=== PATIENT | female | born 1990 | race Caucasian/White ===

== ENCOUNTER 2017-09-23 15:13 | Emergency (ER) | payer OTHER ==
[~2017-09-23] VITALS: Ht 158.8 cm; Wt 56.3 kg
[2017-09-23] MEDS ORDERED: NS 500 ML IV ONE (16:00)
[2017-09-23 16:53] LABS: BASO % 0.2 % (0.0-1.0); EOS # 0.1 10^3/uL (0.0-0.50); EOS % 0.9 % (0.0-3.0); IMMATURE GRANULOCYTE % 0.5 % (0-0); LYMPH # 1.5 10^3/uL (1.5-6.5); LYMPH % 14.8 % (24.0-44.0); MEAN CORPUSCULAR HEMOGLOBIN 29.2 pg (27.0-33.0); MEAN CORPUSCULAR HGB CONC 33.7 g/dl (32.0-36.5); MEAN CORPUSCULAR VOLUME 86.6 fl (80.0-96.0); MONO # 0.6 10^3/uL (0.0-0.8); MONO % 6.4 % (0.0-5.0); NEUTROPHILS # 7.8 10^3/uL (1.8-7.7); NEUTROPHILS % 77.2 % (36.0-66.0); PLATELET COUNT, AUTOMATED 206 10^3/uL (150-450)
[2017-09-23 17:27] LABS: ANION GAP 7 MEQ/L (8-16); BLOOD UREA NITROGEN 5 MG/DL (7-18); CALCIUM LEVEL 8.6 MG/DL (8.5-10.1); CARBON DIOXIDE LEVEL 27 MEQ/L (21-32); CHLORIDE LEVEL 104 MEQ/L (98-107); CREATININE FOR GFR 0.43 MG/DL (0.55-1.02); FREE T4 0.84 NG/DL (0.76-1.46); GLOMERULAR FILTRATION RATE > 60.0 (>60); GLUCOSE, FASTING 80 MG/DL (70-105); POTASSIUM SERUM 3.7 MEQ/L (3.5-5.1); SODIUM LEVEL 138 MEQ/L (136-145)
[2017-09-23 17:45] VITALS: BP 112/61
--- NOTE | 2017-09-23 21:16 | ECGEPIP ---
Stationary ECG Study [facility] - ED Test Date: 2017-09-23 Pat Name: ALICE MELO Department: Room: - Gender: F [employer]: pepper : 1990 Requested By: COBY Loyd Order Number: [id number] Reading MD: Randa Lynn Measurements Intervals [place] Rate: 70 P: 38 VT: 114 QRS: 53 QRSD: 85 T: 40 QT: 379 QTc: 409 Interpretive Statements SINUS RHYTHM WITH SHORT VT INTERVAL NO PRIOR FOR COMPARISON Electronically Signed On 09-23-2017 21:16:21 EDT by Randa Lynn
== END 2017-09-23 18:05 | disposition home or self-care (01) ==
LOC: M ED 15:13
DX: O99.89 Other specified diseases and conditions complicating pregnancy, childbirth and the puerperium (principal); R42 Dizziness and giddiness; Z3A.22 22 weeks gestation of pregnancy

== ENCOUNTER 2017-12-27 16:03 | Inpatient (IN) | payer OTHER ==
[2017-12-27 17:55] LABS: BASO % 0.2 % (0.0-1.0); EOS % 0.4 % (0.0-3.0); HEMATOCRIT 27.8 % (36.0-47.0); HEMOGLOBIN 8.4 g/dl (12.0-16.0); IMMATURE GRANULOCYTE # 0.1 10^3/uL (0-0); IMMATURE GRANULOCYTE % 0.6 % (0-0); LYMPH # 1.6 10^3/uL (1.5-6.5); LYMPH % 17.3 % (24.0-44.0); MEAN CORPUSCULAR HEMOGLOBIN 22.8 pg (27.0-33.0); MEAN CORPUSCULAR HGB CONC 30.2 g/dl (32.0-36.5); MEAN CORPUSCULAR VOLUME 75.5 fl (80.0-96.0); MONO # 0.7 10^3/uL (0.0-0.8); MONO % 7.7 % (0.0-5.0); NEUTROPHILS # 6.9 10^3/uL (1.8-7.7); NEUTROPHILS % 73.8 % (36.0-66.0); PLATELET COUNT, AUTOMATED 119 10^3/uL (150-450); RED BLOOD COUNT 3.68 10^6/uL (4.00-5.40); WHITE BLOOD COUNT 9.3 10^3/uL (4.0-10.0)
[2017-12-27 18:07] LABS: ALT/SGPT 17 U/L (12-78); AST/SGOT 17 U/L (7-37); BILIRUBIN,TOTAL 0.3 MG/DL (0.2-1.0); GLOMERULAR FILTRATION RATE > 60.0 (>60); LDH LACTATE DEHYDROGENASE 175 U/L (84-246); URIC ACID 6.2 MG/DL (2.6-6.0)
[2017-12-27 18:18] LABS: AMPHETAMINES URINE REFLEX NEGATIVE (NEGATIVE); BARBITURATES URINE REFLEX NEGATIVE (NEGATIVE); BENZODIAZEPINES URINE REFLEX NEGATIVE (NEGATIVE); CANNABINOIDS URINE REFLEX NEGATIVE (NEGATIVE); COCAINE METABOLITE URINE REFLE NEGATIVE (NEGATIVE); METHADONE URINE REFLEX NEGATIVE (NEGATIVE); OPIATES URINE REFLEX NEGATIVE (NEGATIVE); PHENCYCLIDINE URINE REFLEX NEGATIVE (NEGATIVE); TOTAL PROTEIN,RANDOM URINE 98.7 MG/DL (0.0-12.0)
[2017-12-27] MEDS ORDERED: CALCIUM GLUCONATE 1,000 MG in D5W MINI-BAG PLUS 100 ML IV (18:45)
[2017-12-27] MEDS: MAG Sulf (L&D) 4 GM/100 ML 4 GM in APPROPRIATE DILUENT 1 EA IV (20:09)
[2017-12-27] MEDS: LR 1,000 ML IV (20:10)
[2017-12-27] MEDS: miSOPROStol 50 MCG 1/2 TAB (S0191) PO (20:10)
[2017-12-27] MEDS: BETAMETHASONE SOLUSPAN 6MG/ML INJ 5ML (J0702) IM (20:11)
[2017-12-27] MEDS: MAG Sulf (OBGYN) 20GM/500ML 20,000 MG in APPROPRIATE DILUENT 1 EA IV (20:33)
[2017-12-28] MEDS: miSOPROStol 50 MCG 1/2 TAB (S0191) PO ×3 (00:12→07:00)
[2017-12-28] MEDS ORDERED: diphenhydrAMINE INJ 50MG/ML VIAL (J1200) As Ordered (00:54)
[2017-12-28] MEDS: diphenhydrAMINE INJ 50MG/ML VIAL (J1200) IV (00:57)
[2017-12-28 05:02] LABS: HEMATOCRIT 30.7 % (36.0-47.0); HEMOGLOBIN 9.3 g/dl (12.0-16.0); MEAN CORPUSCULAR HEMOGLOBIN 22.7 pg (27.0-33.0); MEAN CORPUSCULAR HGB CONC 30.3 g/dl (32.0-36.5); MEAN CORPUSCULAR VOLUME 75.1 fl (80.0-96.0); PLATELET COUNT, AUTOMATED 139 10^3/uL (150-450); RED BLOOD COUNT 4.09 10^6/uL (4.00-5.40); RED CELL DISTRIBUTION WIDTH 14.9 % (11.5-14.5); WHITE BLOOD COUNT 11.2 10^3/uL (4.0-10.0)
[2017-12-28] MEDS: MAG Sulf (OBGYN) 20GM/500ML 20,000 MG in APPROPRIATE DILUENT 1 EA IV ×2 (05:48→15:00)
[2017-12-28] MEDS ORDERED: FENTANYL 2MCG/ML ROPIVACAINE 0.2% IN 0.9% NACL 200ML IVBAG As Ordered (07:23)
[2017-12-28] MEDS: PENICILLIN G POTASSIUM IV 5 MU in D5W MINI-BAG PLUS 100 ML IV (07:33)
[2017-12-28] MEDS ORDERED: ONDANSETRON 4MG/2ML VIAL (J2405) IV (08:45)
[2017-12-28] MEDS ORDERED: EPIDURAL COMMENT XX (08:45)
[2017-12-28] MEDS: FENTANYL/ROPIVACAINE/NACL BAG 200 ML EPIDURAL (08:45)
[2017-12-28] MEDS ORDERED: NALOXONE INJ 0.4 MG/1 ML VIAL (J2310) IV (08:45)
[2017-12-28] MEDS ORDERED: diphenhydrAMINE INJ 50MG/ML VIAL (J1200) IV (08:45)
[2017-12-28] MEDS ORDERED: ePHEDrine INJ 50 MG/ML VIAL IV (08:45)
[2017-12-28] MEDS ORDERED: EPIDURAL/PCA KEYS XX (08:45)
[2017-12-28] MEDS ORDERED: REFRIGERATOR IV KEYS XX (08:45)
[2017-12-28] MEDS ORDERED: LR 1,000 ML IV (08:57)
[2017-12-28] MEDS ORDERED: OXYTOCIN DRIP 30 UNITS in APPROPRIATE DILUENT 1 EA IV (09:00)
[2017-12-28] MEDS: LR 1,000 ML IV ×2 (09:18→17:04)
[2017-12-28] MEDS: PENICILLIN G POTASSIUM IV 2.5 MU in APPROPRIATE DILUENT 1 EA IV (11:41)
[2017-12-28] MEDS ORDERED: ANUSOL HC CREAM 30GM TOP (13:30)
[2017-12-28] MEDS ORDERED: DIBUCAINE 1% OINTMENT 30GM TOP (13:30)
[2017-12-28] MEDS ORDERED: METHYLERGONOVINE MALEATE 0.2 MG TAB PO (13:30)
[2017-12-28] MEDS ORDERED: DOCUSATE SODIUM 100 MG CAP PO (13:30)
[2017-12-28] MEDS: BETAMETHASONE SOLUSPAN 6MG/ML INJ 5ML (J0702) IM (13:40)
[2017-12-28] MEDS: ACETAMINOPHEN 500 MG TAB PO ×2 (13:47→21:57)
[2017-12-28 14:25] LABS: HEMATOCRIT 27.5 % (36.0-47.0); HEMOGLOBIN 8.2 g/dl (12.0-16.0); MEAN CORPUSCULAR HEMOGLOBIN 22.7 pg (27.0-33.0); MEAN CORPUSCULAR HGB CONC 29.8 g/dl (32.0-36.5); PLATELET COUNT, AUTOMATED 148 10^3/uL (150-450); RED BLOOD COUNT 3.62 10^6/uL (4.00-5.40); RED CELL DISTRIBUTION WIDTH 15.2 % (11.5-14.5); WHITE BLOOD COUNT 14.5 10^3/uL (4.0-10.0)
[2017-12-28 15:06] LABS: ALBUMIN 2.4 GM/DL (3.2-5.2); ALBUMIN/GLOBULIN RATIO 0.71 (1.00-1.93); ALKALINE PHOSPHATASE 151 U/L (45-117); ALT/SGPT 15 U/L (12-78); ANION GAP 13 MEQ/L (8-16); AST/SGOT 15 U/L (7-37); BILIRUBIN,TOTAL 0.3 MG/DL (0.2-1.0); BLOOD UREA NITROGEN 7 MG/DL (7-18); CALCIUM LEVEL 6.3 MG/DL (8.5-10.1); CARBON DIOXIDE LEVEL 22 MEQ/L (21-32); CHLORIDE LEVEL 99 MEQ/L (98-107); GLOMERULAR FILTRATION RATE > 60.0 (>60); GLUCOSE, FASTING 116 MG/DL (70-100); POTASSIUM SERUM 3.9 MEQ/L (3.5-5.1); SODIUM LEVEL 134 MEQ/L (136-145); TOTAL PROTEIN 5.8 GM/DL (6.4-8.2)
[2017-12-28 15:21] LABS: MAGNESIUM LEVEL 6.3 MG/DL (1.8-2.4)
[2017-12-28] MEDS: ONDANSETRON 4 MG ORAL DISINTEGRATING TAB (S0181) PO (16:24)
[2017-12-28] MEDS: RHOGAM 300 MCG (1500 IU) INJ (J2790) IM (21:11)
[2017-12-28] MEDS: MEASLES,MUMPS,RUBELLA VACCINE INJ (MMR-II) (90707) SC (21:11)
[2017-12-29] MEDS: LR 1,000 ML IV
[2017-12-29] MEDS: IBUPROFEN 800 MG TAB PO ×2 (04:31→22:55)
[2017-12-29 06:35] LABS: HEMATOCRIT 21.4 % (36.0-47.0); MEAN CORPUSCULAR HEMOGLOBIN 22.6 pg (27.0-33.0); MEAN CORPUSCULAR HGB CONC 29.9 g/dl (32.0-36.5); MEAN CORPUSCULAR VOLUME 75.6 fl (80.0-96.0); PLATELET COUNT, AUTOMATED 145 10^3/uL (150-450); RED BLOOD COUNT 2.83 10^6/uL (4.00-5.40); RED CELL DISTRIBUTION WIDTH 15.3 % (11.5-14.5); WHITE BLOOD COUNT 11.4 10^3/uL (4.0-10.0)
[2017-12-29 06:38] LABS: HEMOGLOBIN 6.4 g/dl (12.0-16.0)
[2017-12-29 07:24] LABS: HEMATOCRIT 22.9 % (36.0-47.0); MEAN CORPUSCULAR HEMOGLOBIN 22.9 pg (27.0-33.0); MEAN CORPUSCULAR HGB CONC 30.6 g/dl (32.0-36.5); MEAN CORPUSCULAR VOLUME 74.8 fl (80.0-96.0); PLATELET COUNT, AUTOMATED 159 10^3/uL (150-450); RED BLOOD COUNT 3.06 10^6/uL (4.00-5.40); RED CELL DISTRIBUTION WIDTH 15.4 % (11.5-14.5); WHITE BLOOD COUNT 13.4 10^3/uL (4.0-10.0)
[2017-12-29] MEDS: PRENATAL VITAMINS CHEWABLE TABLET PO (08:40)
[2017-12-29 08:58] LABS: MAGNESIUM LEVEL 8.2 MG/DL (1.8-2.4)
[2017-12-29] MEDS: MAG Sulf (OBGYN) 20GM/500ML 20,000 MG in APPROPRIATE DILUENT 1 EA IV ×2 (10:12)
[2017-12-29] MEDS: ACETAMINOPHEN 500 MG TAB PO (12:11)
[2017-12-29 12:26] LABS: MAGNESIUM LEVEL 8.5 MG/DL (1.8-2.4)
[2017-12-30] MEDS: ACETAMINOPHEN 500 MG TAB PO ×2 (06:16→23:49)
[2017-12-30] MEDS: PRENATAL VITAMINS CHEWABLE TABLET PO (09:19)
[2017-12-30] MEDS: IBUPROFEN 800 MG TAB PO (17:01)
[2017-12-31] MEDS: PRENATAL VITAMINS CHEWABLE TABLET PO (07:39)
[2017-12-31] MEDS: IBUPROFEN 800 MG TAB PO (07:39)
== END 2017-12-31 13:30 | disposition home or self-care (01) | DRG 775 ==
LOC: M LDO 16:03 → M LDI 18:45 → M OBS 12-30 12:54
PROC: 3E0P7GC Introduction of Other Therapeutic Substance into Female Reproductive, Via Natural or Artificial Opening (ICD-10-PCS; 2017-12-27)
PROC: 10E0XZZ Delivery of Products of Conception, External Approach (ICD-10-PCS; principal; 2017-12-28)
PROC: 0HQ9XZZ Repair Perineum Skin, External Approach (ICD-10-PCS; 2017-12-28)
DX: O14.14 Severe pre-eclampsia complicating childbirth (principal); Z3A.36 36 weeks gestation of pregnancy; O69.81X0 Labor and delivery complicated by cord around neck, without compression, not applicable or unspecified; O70.0 First degree perineal laceration during delivery; Z37.0 Single live birth

== ENCOUNTER 2019-10-27 23:35 | Emergency (ER) | payer OTHER ==
[~2019-10-27] VITALS: Ht 157.5 cm; Wt 49.1 kg
[~2019-10-27 23:35] MED LIST: COLA100C5 PO; IBUP-1114 PO; MAPA500T2 PO; NUPE1OIN2 TOP; PRENTAB9 PO
[2019-10-27] MEDS ORDERED: ZOLO50TA PO (23:50)
[2019-10-27] MEDS ORDERED: HYDR-4570 PO (23:51)
[2019-10-28 01:19] VITALS: BP 132/96
[2019-10-28] MEDS ORDERED: PROAAER10 INH (01:46)
[2019-10-28] MEDS ORDERED: ERYT1OIN26 OP (01:46)
== END 2019-10-28 02:00 | disposition home or self-care (01) ==
LOC: M ED 23:35
DX: H10.9 Unspecified conjunctivitis (principal); R06.02 Shortness of breath; R05 Cough; Z20.828 Contact with and (suspected) exposure to other viral communicable diseases; I10 Essential (primary) hypertension; F41.9 Anxiety disorder, unspecified; Z79.899 Other long term (current) drug therapy; F17.210 Nicotine dependence, cigarettes, uncomplicated

== ENCOUNTER → 2019-11-23 | Outpatient (REF) | payer OTHER ==
[~2019-11-23] MED LIST changes: +ERYT1OIN26 OP; +HYDR-4570 PO; +PROAAER10 INH; +ZOLO50TA PO
[2019-11-23 18:54] LABS: CHLAMYDIA DNA AMPLIFICATION NEGATIVE (NEGATIVE); GC DNA AMPLIFICATION NEGATIVE (NEGATIVE)
== END ==
LOC: M SFHCLERA 13:30
PROVIDERS: ATTEND Nurse Practitioner Family
DX: R10.9 Unspecified abdominal pain (principal); R05 Cough
CPT/HCPCS: 71046; 81002; 81025; 87086; 87661; 87804; 87880; G0463

== ENCOUNTER → 2019-11-23 | Outpatient (CLI) | payer OTHER ==
--- NOTE | 2019-11-23 14:11 | REP ---
Clinical: Cough . Comparison: None . Technique: PA and lateral. Findings: The mediastinum and cardiac silhouette are normal. The lung palafox are clear and without acute consolidation, effusion, or pneumothorax. The skeletal structures are intact and normal. Impression: 1. No acute cardiopulmonary process. Electronically Signed by Pedro Pollack MD 11/23/2019 02:03 P
== END ==
LOC: M LRY 13:27
PROVIDERS: ATTEND Nurse Practitioner Family
DX: R10.9 Unspecified abdominal pain (principal); R05 Cough